=== PATIENT | female | born 1980 ===

== ENCOUNTER 2017-08-29 19:24 | Emergency (ER) | payer BC ==
[2017-08-29 20:07] VITALS: BMI 30.3
[2017-08-29 20:19] LABS: SQUAMOUS EPITHIAL 8 /hpf (0-5); URINE BACTERIA MOD (<OCC); URINE BILIRUBIN NEGATIVE (NEGATIVE); URINE BLOOD 2+ (NEGATIVE); URINE CLARITY Hazy (Clear); URINE COLOR Straw (YELLOW); URINE GLUCOSE (UA) NORMAL (Normal); URINE LEUKOCYTE ESTERASE TRACE Leu/uL (Negative); URINE PROTEIN NEGATIVE (NEGATIVE); URINE UROBILINOGEN NORMAL mg/dL (0.2-1.0)
--- NOTE | 2017-08-29 20:51 | OBHP ---
Datetime: 08/29/2017 20:39 IP Adm Impression: , intrauterine IP Admit Plan: Observation/Evaluation; Discharge home Admit Comment, IP Provider: Pt is here today with complaints of right lower abdominal pain that star migue 3 days ago. She states that the pain is 5/10, does not radiate and it hurts when she coughs. Noth ing makes the pain better or worse. She states that the pain has gotten progressively worse. POBHx: C/S x 2 PGYNHx: none PMHx: none Meds: none ALL: NKDA Social: negative x 3 ROS: HEENT: PERRLA CHEST: negative RESP: negative EXT: no edema GI/; negative. Muscl: negative. Neuro; denies BOOTH Endocrine: negative. PE: SVE: closed/long/hi. A/P: @ 33 4/7 presents today with RLQ pain. 1) UA + for UTI. treat with keflex. Follow up with her [facility] Pelvic Type - PN: Adequate Extremities - PN: Normal Abdomen - PN: Normal Back - PN: Normal Breast - PN: Normal Lungs - PN: Normal Heart - PN: Normal Thyroid - PN: Normal Neurologic - PN: Normal HEENT - PN: Normal General - PN: Normal IP Fetus A Comments: ` FHR - Baseline A Provider: 150s Gestation - Est Wks by US: 33.0 EGA AdmitDate IP: 33.4 IP Chief Complaint: Signs/symptoms UTI NICHD Variability Prov Fetus A: Moderate 6-25bpm NICHD Accel Fetus A IP Provider: [id number] FHR Category Provider Fetus A: Category I NICHD Decel Fetus A IP Provider: None Genitourinary Exam: Normal DTRs - PN: Normal
[2017-08-30 01:13] VITALS: BP 112/70; PULSE 89; RESP 20; TEMP 97; O2SAT 96
== END 2017-08-29 20:43 | disposition home or self-care (01) ==
LOC: C.EROB 19:24
DX: O26.93 Pregnancy related conditions, unspecified, third trimester (principal); R10.31 Right lower quadrant pain; Z3A.33 33 weeks gestation of pregnancy